=== PATIENT | male | born 1965 | race African-American/Black ===

== ENCOUNTER 2020-05-10 19:56 | Inpatient (IN) | payer OTHER ==
[~2020-05-10] VITALS: Ht 170.2 cm; Wt 142.4 kg
[2020-05-10 19:56] VITALS: BP 132/74
--- NOTE | 2020-05-10 20:05 | Emergency Room Report ---
History of Present Illness General Chief Complaint: Generalized Weakness Source: Patient Present Illness HPI History of present illness: 54-year-old -British male with past medical history of hypertension and morbid obesity brought in by ambulance for complaint of generalized weakness. Patient states that he has been feeling weak for the past 7 days. Also endorses chills, subjective fever, and diarrhea. States that diarrhea is copious but nonbloody. Since the symptoms started, he also has found it more difficult to breathe. He gets more winded while walking. Denies cough or shortness of breath. According to [place] fire, patient was noted to be 89% on room air. Patient is not home O2 dependent. Past medical history: Hypertension, obesity Past surgical history: Tonsillectomy Smoking: Previous heavy smoker but now quit Alcohol use: Denies Drug use: Denies Review of systems: CONST: No fevers +chills, No night sweats PULMONARY: No productive cough, +shortness of breath CARDIAC: No chest pain, No palpitations GI: No vomiting, + diarrhea , No melena_or_BRBPR : No dysuria, No hematuria, No discharge NEURO: No new_focal_weakness_or_numbness, No confusion, No vision changes 14 point Review of Systems is otherwise negative except per HPI Physical Exam: GENERAL: Awake_alert_ nontoxic, no acute distress Spo2 89% on room air (normal) . Morbidly obese. EYES: Extraocular muscles are intact. Conjunctivae clear. Lids without swelling ENT: External nose and ear normal_in_appearance. Oropharynx clear. Head_ atraumatic, Moist_oral_mucosa NECK: No JVD. No meningismus. No thyromegaly. Supple. Trachea midline RESP: Coarse breath sounds bilaterally. Normal respiratory effort. Symmetric rise. No stridor. Clear_to_auscultation_No_ rales_No_wheezes CARDIAC: Tachycardic. And regular rhythm on_auscultation No_significant pedal edema. ABDOMEN: Soft. Nondistended. Nontender_No_rebound_or_guarding. No pulsatile mass MSK: Normal muscle tone, without rigidity. Extremities without asymmetric deformity or swelling. SKIN: Warm and dry. No visible cyanosis or pallor NEUROLOGIC: Alert, oriented x3. Motor_and_sensation_grossly_intact. No truncal ataxia. Gait_normal Psych: Normal mood and affect, normal judgment and insight - COORDINATION OF CARE Case was discussed with: Patient and patient's family. Any labs and imaging that were ordered were interpreted as part of the medical decision making: Medical Decision Making/Plan: Differential includes CHF, pulmonary edema, pulmonary embolism, pneumonia, COVID , pleural effusions, pneumothorax, among others. EKG without any obvious signs of ischemia. He does have T wave inversions in the lateral and inferior leads. Chest xray shows multifocal pneumonia suspicious for COVID pneumonia. Symptoms are not likely to be due to pulmonary embolism, as his primary complaint is diarrhea. Infectious etiology is more likely. Patient is hypoxic here and is not home O2 dependent. He is not suitable for outpatient management due to this hypoxia. Will admit to the hospital for oxygen Pt was given azithro, rocephin, and decadron. I spoke with Dr. Ryan, and reviewed the patients presentation, workup, results, and treatment. They will admit the patient for further care and evaluation, and assume care of the patient at this time. CRITICAL CARE TIME I spent 50 minutes of critical care time. This time excludes any separately billable procedures. Treatments/Evaluations: Emergent and rapid respiratory assessment and management with continuous monitoring. Advanced airway equipment at the ready, while the patient's respiratory symptoms were stabilized. Given the patients presentation with CHF requiring oxygen, there existed the potential for imminent deterioration in the patient's condition due to respiratory compromise. Organ systems at risk for failure without immediate intervention include pulmonary / respiratory Allergies: Coded Allergies: No Known Allergies (Unverified , 05/10/20) COVID-19 Screening Contact w/high risk pt: No Experienced COVID-19 symptoms?: No COVID-19 Testing performed [employer]ENT: No Nursing Documentation-PMH Hx Hypertension: Yes Hx Diabetes: Yes - pre-diabetic Physical Exam Vital Signs Date Time Temp Pulse Resp B/P (MAP) Pulse Ox O2 Delivery O2 Flow Rate FiO2 05/10/20 19:52 97.5 96 20 132/74 (93) 90 Room Air Sp02 EP Interpretation: reviewed, normal Medical Decision Making Diagnostic Impression: Primary Impression: Episode of generalized weakness Additional Impressions: Hypoxia Obesity Hypertension Suspected COVID-19 virus infection Diarrhea EKG Diagnostic Results TK Scribe Text 12-lead EKG (interpreted by me) Time: 2014 Indication: Analysis Tracing visualized and Interpreted by me. Rhythm: Normal sinus rhythm Rate: 96 bpm QTc: 424 Morphology: No_significant_ST_elevations_or_depressions, No STEMI Impression: NSR, twi inferior and lateral leads, no STEMI Rhythm Strip Diag. Results Rhythm Strip Time: 20:29 EP Interpretation: yes Rate: 113 Rhythm: other - sinus tachycardia Other Impression sinus tachycardia Chest X-Ray Diagnostic Results Chest X-Ray Diagnostic Results : PA Scribe Text Chest X-ray: Views: 1 view(s) Indication: SOB Findings: Normal heart size. Mediastinum normal. No effusions Impression: Multifocal pneumonia. No pneumothorax. No pleural effusions The X-ray(s) were independently viewed and interpreted contemporaneously - Electronically signed by Ashley wills DO Reevaluation Time: 20:27 Last Vital Signs Date Time Temp Pulse Resp B/P (MAP) Pulse Ox O2 Delivery O2 Flow Rate FiO2 05/10/20 19:52 97.5 96 20 132/74 (93) 90 Room Air Status: improved Disposition: ADMITTED INPATIENT Admit Decision Time: 20:27 Condition: Stable Ashley Alfaro D.O. May 10, 2020 20:05
[2020-05-10] MEDS ORDERED: METOPROLOL TART50 M1 ORAL (20:09)
[2020-05-10] MEDS ORDERED: ASPIRIN81 MG ORAL (20:09)
[2020-05-10] MEDS ORDERED: AMLODIPINE BESY10 MG ORAL (20:09)
[2020-05-10] MEDS ORDERED: HYDROCHLOROTH12.5 MG ORAL (20:09)
[2020-05-10] MEDS ORDERED: LOSARTAN POTASS50 MG ORAL (20:09)
[2020-05-10] MEDS ORDERED: ATORVASTATIN CA20 MG ORAL (20:09)
[2020-05-10] MEDS ORDERED: cefTRIAXone 2 GM in NS 110 ML IV ONE (20:15)
[2020-05-10] MEDS ORDERED: Azithromycin 250mg tab ORAL ONE (20:30)
[2020-05-10 20:44] LABS: BASOPHILS % (AUTO) 1.3 % (0.0-2.0); EOSINOPHILS % (AUTO) 0.1 % (0.0-3.0); HEMATOCRIT 45.1 % (42.0-52.0); HEMOGLOBIN 14.9 G/DL (14.2-18.0); LYMPHOCYTES % (AUTO) 14.8 % (20.0-45.0); MEAN CORPUSCULAR VOLUME 80 FL (80-99); MONOCYTES % (AUTO) 10.3 % (1.0-10.0); NEUTROPHILS % (AUTO) 73.6 % (45.0-75.0); PLATELET COUNT 178 K/UL (150-450); RED BLOOD COUNT 5.63 M/UL (4.70-6.10); RED CELL DISTRIBUTION WIDTH 15.3 % (11.6-14.8); WHITE BLOOD COUNT 11.2 K/UL (4.8-10.8)
[2020-05-10 20:52] LABS: INR 1.2 (0.9-1.1)
[2020-05-10 20:55] LABS: ANION GAP 13 mmol/L (5-15); BLOOD UREA NITROGEN 74 mg/dL (7-18); CALCIUM 8.2 MG/DL (8.5-10.1); CARBON DIOXIDE 24 MMOL/L (21-32); CHLORIDE 96 MMOL/L (98-107); CREATININE 2.6 MG/DL (0.55-1.30); POTASSIUM 3.8 MMOL/L (3.5-5.1); SODIUM 133 MMOL/L (136-145)
[2020-05-10 21:00] VITALS: BP 102/59
[2020-05-10 21:13] LABS: ALANINE AMINOTRANSFERASE 294 U/L (12-78); ALBUMIN 2.9 G/DL (3.4-5.0); ALBUMIN/GLOBULIN RATIO 0.7 (1.0-2.7); ALKALINE PHOSPHATASE 93 U/L (46-116); ASPARTATE AMINO TRANSFERASE 299 U/L (15-37); BILIRUBIN,TOTAL 2.3 MG/DL (0.2-1.0); CREATINE KINASE 6240 U/L (26-308); PHOSPHORUS 3.5 MG/DL (2.5-4.9)
[2020-05-10 21:17] LABS: BILIRUBIN,DIRECT 1.1 MG/DL (0.0-0.3)
[2020-05-10 22:00] VITALS: BP 109/71
[2020-05-10 23:00] VITALS: BP 117/56
[2020-05-11] VITALS (9 sets, daily range): BP systolic 110–139; BP diastolic 57–73
[2020-05-11 00:25] LABS: BILIRUBIN, URINE NEGATIVE (NEGATIVE); GLUCOSE, URINE (UA) NEGATIVE (NEGATIVE); KETONES,URINE NEGATIVE (NEGATIVE); LEUKOCYTE ESTERASE ,URINE NEGATIVE (NEGATIVE); NITRITE,URINE NEGATIVE (NEGATIVE); PH,URINE 5 (4.5-8.0); PROTEIN,URINE 2+ (NEGATIVE); UROBILINOGEN,URINE 1 MG/DL (0.0-1.0)
[2020-05-11 00:41] LABS: APPEARANCE,URINE CLEAR; COLOR,URINE YELLOW
[2020-05-11] MEDS: D5 1/2NS w/KCl 20mEq 1,000 ML IV SCH ×3 (03:31→17:12)
--- NOTE | 2020-05-11 06:45 | Consultation ---
DATE OF CONSULTATION: 05/11/2020 PULMONARY CONSULTATION HISTORY OF PRESENT ILLNESS: This is a 54-year-old male with a history of hypertension and obesity who came to the hospital with generalized weakness. The patient reports he has a history of heart condition. He is found to be hypoxic on room air, who was admitted to the hospital for further management and care. The patient admits to having significant tobacco use history, but has quit recently. Overnight, the patient has been seen and continued on his home medications. He is currently noted to be on Tylenol, Norvasc, aspirin, Lipitor. He has also received Decadron, Lovenox, Pepcid, and a dose of azithromycin. The patient underwent a COVID-19 rapid test which was positive for COVID-19 pneumonia. REVIEW OF SYSTEMS: The patient denies any headaches, hematemesis, melena, hematochezia, night sweats, or weight loss. Admits to having chills. PHYSICAL EXAMINATION: GENERAL: Reveals a 54-year-old male. VITAL SIGNS: O2 saturation 99% on room air, overnight he was on nasal oxygen and saturations is 95%. Blood pressure is 110/60, heart rate 80, respirations 18, afebrile. HEENT: Unremarkable. CHEST: Clear breath sounds bilaterally. ABDOMEN: Soft. EXTREMITIES: There is no edema. LABORATORY DATA: Lab testing shows white count 11.2, otherwise normal CBC and BMP except for creatinine of 2.6, sodium 133. He has elevation of LFTs as well ALT and AST both being elevated and total bilirubin 2.3. Urinalysis negative. IMAGING STUDIES: X-ray chest showed bilateral focal infiltrate. IMPRESSION: 1. Acute COVID-19 pneumonia. 2. Hypoxemia. 3. Transaminitis and hyperbilirubinemia. 4. Ex-smoker. DISCUSSION: Admit to the hospital. The patient may be a candidate for Remdesivir; however, high creatinine may preclude him. Continue oxygen, steroids, pulmonary hygiene. Defer use of antibiotics to ID. We will follow carefully with commodity specialist. Jaswinder Frederick M.D. DR: Erick JOB#: [id number] CC:
[2020-05-11] MEDS: Aspirin Baby 81mg ORAL SCH (09:27)
[2020-05-11] MEDS: Enoxaparin 40mg Inj SUBQ SCH (09:29)
--- NOTE | 2020-05-11 13:48 | History & Physical ---
History and Physical History & Physicial HP dictated # [id number] Mitchell Blackwell MD May 11, 2020 13:48
--- NOTE | 2020-05-11 16:13 | Diagnostic Imaging Report ---
Indication: Cough Technique: One view of the chest Comparison: none Findings: Fairly extensive infiltrates in a peribronchovascular distribution are seen in the right mid and lower lung. Minimal if any infiltrate is seen on the left. The upper mediastinum is prominent. The heart size is normal. Patient is rotated to the right Impression: Right lung infiltrates, likely pneumonia, possibly viral
--- NOTE | 2020-05-11 16:45 | History and Physical Report ---
DATE OF ADMISSION: 05/10/2020 CHIEF COMPLAINT: Weakness. HISTORY OF PRESENT ILLNESS: This is a 54-year-old male with history of morbid obesity, hypertension, who came to the emergency room with weakness, was found to be hypoxic on room air. He was COVID positive, was diagnosed with COVID pneumonia and admitted. PAST MEDICAL HISTORY: As above. SOCIAL HISTORY: As above. REVIEW OF SYSTEMS: As above. PHYSICAL EXAMINATION: GENERAL: The patient is a morbidly obese male, in no acute distress. VITAL SIGNS: Blood pressure 132/74, pulse 96, temperature 97.5, respiratory rate is 20. HEENT: [place] conjunctivae. Anicteric sclerae. NECK: Supple. LUNGS: Clear to auscultation. HEART: S1, S2 without murmurs or rubs. ABDOMEN: Soft, nontender. EXTREMITIES: No cyanosis or edema. LABORATORY FINDINGS: His CBC shows a WBC of 11,200, hematocrit is 45.1, hemoglobin is 14.9, and platelets 178,000. Chemistry panel shows serum sodium of 133, potassium 3.8, chloride 96, carbon dioxide 24, BUN is 74, creatinine 2.6, blood sugar is 151, calcium is 8.2. The UA was showing 4+ protein, 5 to 10 rbc's per high-power field. ASSESSMENT: This is a 54-year-old obese male, who was admitted with COVID pneumonia. PLAN: He was already started on azithromycin, Lovenox, IV steroids, dexamethasone, and oxygen. He will be followed clinically and adjustment will be made in the patient's regimen. Mitchell Blcakwell M.D. : JACK JOB#: [id number] CC:
[2020-05-11] MEDS: Azithromycin 250mg tab ORAL SCH (20:57)
[2020-05-11] MEDS: Atorvastatin 20mg tab ORAL SCH (20:57)
[2020-05-11] MEDS: cefTRIAXone 1 GM in D5W 55 ML IVPB SCH (20:59)
[2020-05-12] VITALS: BP 134/76
[2020-05-12 04:50] VITALS: BP 130/70
[2020-05-12 05:49] LABS: BASOPHILS % (AUTO) 1.7 % (0.0-2.0); HEMATOCRIT 42.4 % (42.0-52.0); HEMOGLOBIN 13.9 G/DL (14.2-18.0); MEAN CORPUSCULAR VOLUME 81 FL (80-99); MONOCYTES % (AUTO) 9.4 % (1.0-10.0); NEUTROPHILS % (AUTO) 72.9 % (45.0-75.0); PLATELET COUNT 230 K/UL (150-450); RED BLOOD COUNT 5.23 M/UL (4.70-6.10); RED CELL DISTRIBUTION WIDTH 14.4 % (11.6-14.8); WHITE BLOOD COUNT 16.6 K/UL (4.8-10.8)
[2020-05-12] MEDS: D5 1/2NS w/KCl 20mEq 1,000 ML IV SCH ×2 (06:01→17:59)
[2020-05-12 06:14] LABS: ANION GAP 8 mmol/L (5-15); BLOOD UREA NITROGEN 35 mg/dL (7-18); CALCIUM 8.9 MG/DL (8.5-10.1); CARBON DIOXIDE 26 MMOL/L (21-32); CHLORIDE 99 MMOL/L (98-107); CHOLESTEROL 90 MG/DL (< 200); CREATININE 1.4 MG/DL (0.55-1.30); HDL CHOLESTEROL 10 MG/DL (40-60); POTASSIUM 3.9 MMOL/L (3.5-5.1); SODIUM 133 MMOL/L (136-145); TRIGLYCERIDES 136 MG/DL (30-150)
[2020-05-12 08:00] VITALS: BP 141/80
[2020-05-12] MEDS: Aspirin Baby 81mg ORAL SCH (09:29)
[2020-05-12] MEDS: Enoxaparin 40mg Inj SUBQ SCH (09:32)
[2020-05-12 12:00] VITALS: BP 127/49
--- NOTE | 2020-05-12 13:47 | Pulmonology Progress Note ---
Subjective ROS Limited/Unobtainable: No Allergies: Coded Allergies: No Known Allergies (Unverified , 05/10/20) Objective Last 24 Hour Vital Signs Date Time Temp Pulse Resp B/P (MAP) Pulse Ox O2 Delivery O2 Flow Rate FiO2 05/12/20 12:00 97.7 91 22 127/49 (75) 94 05/12/20 11:28 96 05/12/20 09:29 82 141/80 05/12/20 09:00 Nasal Cannula 2.0 05/12/20 08:04 93 05/12/20 08:00 98.1 82 20 141/80 (100) 97 05/12/20 04:50 98.2 79 22 130/70 (90) 95 05/12/20 04:00 86 05/12/20 00:00 85 05/12/20 00:00 98.1 81 22 134/76 (95) 98 05/11/20 22:00 134 05/11/20 21:00 97.7 84 20 139/73 (95) 95 05/11/20 21:00 Nasal Cannula 2.0 05/11/20 20:00 97.7 84 20 139/73 (95) 95 05/11/20 20:00 88 05/11/20 16:00 98.6 85 20 115/69 (84) 94 05/11/20 15:58 79 Intake and Output 05/11/20 05/12/20 19:00 07:00 Intake Total 1625 ml 400 ml Output Total 2300 ml 1600 ml Balance -675 ml -1200 ml Intake Oral 800 ml 400 ml IV Total 825 ml Output Urine Total 2300 ml 1600 ml # Voids 4 3 Microbiology Date/Time Source Procedure Growth Status 05/10/20 20:15 Blood Blood Culture - Preliminary NO GROWTH AFTER 24 HOURS Resulted 05/10/20 20:10 Blood Blood Culture - Preliminary NO GROWTH AFTER 24 HOURS Resulted 05/10/20 20:26 Nasopharynx SARS-CoV-2 RdRp Gene Assay - Final Complete Laboratory Tests 05/12/20 04:00: White Blood Count 16.6H, Red Blood Count 5.23, Hemoglobin 13.9L, Hematocrit 42.4 , Mean Corpuscular Volume 81, Mean Corpuscular Hemoglobin 26.6L, Mean Corpuscular Hemoglobin Concent 32.8, Red Cell Distribution Width 14.4, Platelet Count 230, Mean Platelet Volume 9.1, Neutrophils (%) (Auto) 72.9, Lymphocytes (% ) (Auto) 16.0L, Monocytes (%) (Auto) 9.4, Eosinophils (%) (Auto) 0.0, Basophils (%) (Auto) 1.7, Sodium Level 133L, Potassium Level 3.9, Chloride Level 99, Carbon Dioxide Level 26, Anion Gap 8, Blood Urea Nitrogen 35H, Creatinine 1.4H, Estimat Glomerular Filtration Rate > 60, Glucose Level 233H, Hemoglobin A1c 6.6H , Calcium Level 8.9, Magnesium Level 2.2, Triglycerides Level 136, Cholesterol Level 90, LDL Cholesterol 48, HDL Cholesterol 10L, Cholesterol/HDL Ratio 9.0H Current Medications Medications (Trade) Dose Ordered Sig/Sulema Route PRN Reason Start Time Stop Time Status Last Admin Dose Admin Acetaminophen (Tylenol) 650 mg Q4H PRN ORAL Mild Pain (Pain Scale 1-3) 05/11/20 01:00 06/10/20 00:59 Acetaminophen (Tylenol) 650 mg Q4H PRN ORAL Temp >100.5 05/11/20 01:00 06/10/20 00:59 Amlodipine Besylate (Norvasc) 10 mg DAILY ORAL 05/11/20 09:00 06/10/20 08:59 05/12/20 09:29 Aspirin (ASA) 81 mg DAILY ORAL 05/11/20 09:00 06/25/20 08:59 05/12/20 09:29 Atorvastatin Calcium (Lipitor) 20 mg BEDTIME ORAL 05/11/20 21:00 08/09/20 20:59 05/11/20 20:57 Azithromycin (Zithromax) 250 mg Q24H ORAL 05/11/20 21:00 05/18/20 20:59 05/11/20 20:57 Ceftriaxone Sodium 1 gm/ Dextrose 55 ml @ 110 mls/hr Q24H IVPB 05/11/20 21:00 05/18/20 20:59 05/11/20 20:59 Dexamethasone Sodium Phosphate (Decadron 4mg/ml vial) 4 mg BID IVP 05/11/20 09:00 08/09/20 08:59 05/12/20 09:29 Dextrose (Dextrose 50%) 25 ml Q30M PRN IV Hypoglycemia 05/11/20 01:00 08/09/20 00:59 Dextrose (Dextrose 50%) 50 ml Q30M PRN IV Hypoglycemia 05/11/20 01:00 08/09/20 00:59 Dextrose/ Electrolytes 1,000 ml @ 75 mls/hr [id number] IV 05/11/20 02:00 06/10/20 01:59 05/12/20 06:01 Enoxaparin Sodium (Lovenox) 40 mg Q24H SUBQ 05/11/20 09:00 08/09/20 08:59 05/12/20 09:32 Famotidine (Pepcid) 20 mg BID ORAL 05/11/20 09:00 08/09/20 08:59 05/12/20 09:29 Assessment/Plan Assessment/Plan Pulmonary Progress Note: HPI: Patient is a 54-year-old male with a history of hypertension and obesity, HHD Noted to be hypoxic on room air, noted to have Covid19 Pneumonia, stable O2 sats on O2 On Decadron, Lovenox, Pepcid, and a dose of azithromycin. PHYSICAL EXAMINATION: Vital signs noted Deferred Covid 19 LABORATORY DATA NOTED: IMAGING STUDIES: X-ray chest showed bilateral focal infiltrate. IMPRESSION: 1. Acute COVID-19 pneumonia. 2. Hypoxemia. 3. Transaminitis and hyperbilirubinemia. 4. Ex-smoker. 5. Obesity 6. Hypertension PLAN: Antiviral therapy per ID Oxygen PRN Decadron per ID, pulmonary hygiene. Solomon Erwin MD May 12, 2020 13:47
[2020-05-12 16:00] VITALS: BP 115/69
[2020-05-12 20:00] VITALS: BP 111/65
[2020-05-12] MEDS: Atorvastatin 20mg tab ORAL SCH (20:19)
--- NOTE | 2020-05-12 20:19 | General Progress Note ---
Assessment/Plan Problem List: (1) Pneumonia due to COVID-19 virus ICD Codes: U07.1 - COVID-19; J12.89 - Other viral pneumonia SNOMED: 122261129, 044821239 (2) Hypertension ICD Codes: I10 - Essential (primary) hypertension SNOMED: 38810001 (3) Obesity ICD Codes: E66.9 - Obesity, unspecified SNOMED: 161240771, 803945708 (4) Hypoxia ICD Codes: R09.02 - Hypoxemia SNOMED: 622825374 (5) Diarrhea ICD Codes: R19.7 - Diarrhea, unspecified SNOMED: 82652280 (6) Episode of generalized weakness ICD Codes: R53.1 - Weakness SNOMED: 46168049 Assessment/Plan: O2 as needed steroids anticoagulation abxs Discussed with RN Subjective Allergies: Coded Allergies: No Known Allergies (Unverified , 05/10/20) Subjective gets tachycardic with activities Objective Last 24 Hour Vital Signs Date Time Temp Pulse Resp B/P (MAP) Pulse Ox O2 Delivery O2 Flow Rate FiO2 05/12/20 16:00 98.2 85 21 115/69 (84) 94 05/12/20 15:45 128 05/12/20 12:00 97.7 91 22 127/49 (75) 94 05/12/20 11:28 96 05/12/20 09:29 82 141/80 05/12/20 09:00 Nasal Cannula 2.0 05/12/20 08:04 93 05/12/20 08:00 98.1 82 20 141/80 (100) 97 05/12/20 04:50 98.2 79 22 130/70 (90) 95 05/12/20 04:00 86 05/12/20 00:00 85 05/12/20 00:00 98.1 81 22 134/76 (95) 98 05/11/20 22:00 134 05/11/20 21:00 97.7 84 20 139/73 (95) 95 05/11/20 21:00 Nasal Cannula 2.0 Intake and Output 05/11/20 05/12/20 19:00 07:00 Intake Total 1625 ml 400 ml Output Total 2300 ml 1600 ml Balance -675 ml -1200 ml Intake Oral 800 ml 400 ml IV Total 825 ml Output Urine Total 2300 ml 1600 ml # Voids 4 3 Laboratory Tests 05/12/20 04:00: White Blood Count 16.6H, Red Blood Count 5.23, Hemoglobin 13.9L, Hematocrit 42.4 , Mean Corpuscular Volume 81, Mean Corpuscular Hemoglobin 26.6L, Mean Corpuscular Hemoglobin Concent 32.8, Red Cell Distribution Width 14.4, Platelet Count 230, Mean Platelet Volume 9.1, Neutrophils (%) (Auto) 72.9, Lymphocytes (% ) (Auto) 16.0L, Monocytes (%) (Auto) 9.4, Eosinophils (%) (Auto) 0.0, Basophils (%) (Auto) 1.7, Sodium Level 133L, Potassium Level 3.9, Chloride Level 99, Carbon Dioxide Level 26, Anion Gap 8, Blood Urea Nitrogen 35H, Creatinine 1.4H, Estimat Glomerular Filtration Rate > 60, Glucose Level 233H, Hemoglobin A1c 6.6H , Calcium Level 8.9, Magnesium Level 2.2, Triglycerides Level 136, Cholesterol Level 90, LDL Cholesterol 48, HDL Cholesterol 10L, Cholesterol/HDL Ratio 9.0H Height (Feet): 5 Height (Inches): 7.00 Weight (Pounds): 314 Mitchell Blackwell MD May 12, 2020 20:19
[2020-05-12] MEDS: Azithromycin 250mg tab ORAL SCH (20:20)
[2020-05-12] MEDS: cefTRIAXone 1 GM in D5W 55 ML IVPB SCH (20:21)
[2020-05-13] VITALS: BP 117/52
[2020-05-13 04:00] VITALS: BP 108/58
[2020-05-13 08:00] VITALS: BP 139/70
[2020-05-13] MEDS ORDERED: Tubing IV Secondary IV ONE (08:34)
[2020-05-13 08:41] LABS: BASOPHILS % (AUTO) 1.1 % (0.0-2.0); HEMATOCRIT 39.2 % (42.0-52.0); HEMOGLOBIN 12.8 G/DL (14.2-18.0); LYMPHOCYTES % (AUTO) 20.1 % (20.0-45.0); MEAN CORPUSCULAR VOLUME 81 FL (80-99); MONOCYTES % (AUTO) 12.2 % (1.0-10.0); NEUTROPHILS % (AUTO) 66.5 % (45.0-75.0); PLATELET COUNT 230 K/UL (150-450); RED BLOOD COUNT 4.81 M/UL (4.70-6.10); RED CELL DISTRIBUTION WIDTH 14.6 % (11.6-14.8); WHITE BLOOD COUNT 12.3 K/UL (4.8-10.8)
[2020-05-13 09:06] LABS: ALANINE AMINOTRANSFERASE 204 U/L (12-78); ALBUMIN 2.4 G/DL (3.4-5.0); ALBUMIN/GLOBULIN RATIO 0.5 (1.0-2.7); ALKALINE PHOSPHATASE 65 U/L (46-116); ANION GAP 10 mmol/L (5-15); ASPARTATE AMINO TRANSFERASE 127 U/L (15-37); BILIRUBIN,TOTAL 0.8 MG/DL (0.2-1.0); BLOOD UREA NITROGEN 16 mg/dL (7-18); CALCIUM 8.1 MG/DL (8.5-10.1); CARBON DIOXIDE 27 MMOL/L (21-32); CHLORIDE 99 MMOL/L (98-107); CREATININE 1.1 MG/DL (0.55-1.30); POTASSIUM 3.7 MMOL/L (3.5-5.1); SODIUM 136 MMOL/L (136-145)
[2020-05-13] MEDS: Aspirin Baby 81mg ORAL SCH (09:54)
[2020-05-13] MEDS: Enoxaparin 40mg Inj SUBQ SCH (09:55)
[2020-05-13] MEDS: D5 1/2NS w/KCl 20mEq 1,000 ML IV SCH ×2 (09:56→19:25)
[2020-05-13 12:00] VITALS: BP 129/61
--- NOTE | 2020-05-13 12:05 | Infectious Diseases Prog Note ---
Assessment/Plan Assessment/Plan IMPRESSION: 1. COVID19 pneumonia. 2. Hypoxemia improving 3. Transaminitis and hyperbilirubinemia. 4. Ex-smoker. 5. Obesity 6. Hypertension 7. Acute renal failure resolving PLAN Continue Zithromax & Rocephin Continue Dexamethasone Subjective ROS Limited/Unobtainable: Yes Allergies: Coded Allergies: No Known Allergies (Unverified , 05/10/20) Objective Last 24 Hour Vital Signs Date Time Temp Pulse Resp B/P (MAP) Pulse Ox O2 Delivery O2 Flow Rate FiO2 05/13/20 09:54 81 139/70 05/13/20 08:00 96.7 81 18 139/70 (93) 96 05/13/20 04:00 98.9 92 20 108/58 (75) 97 05/13/20 04:00 128 05/13/20 00:00 97.0 79 20 117/52 (73) 95 05/12/20 23:49 87 05/12/20 21:00 Nasal Cannula 2.0 05/12/20 20:00 98.0 90 20 111/65 (80) 93 05/12/20 19:28 86 05/12/20 16:00 98.2 85 21 115/69 (84) 94 05/12/20 15:45 128 Height (Feet): 5 Height (Inches): 7.00 Weight (Pounds): 314 HEENT: mucous membranes moist Respiratory/Chest: lungs clear Cardiovascular: normal rate Abdomen: soft, non tender Extremities: no edema Neurologic/Psychiatric: other - sleeping Microbiology Date/Time Source Procedure Growth Status 05/10/20 20:15 Blood Blood Culture - Preliminary NO GROWTH AFTER 48 HOURS Resulted 05/10/20 20:10 Blood Blood Culture - Preliminary NO GROWTH AFTER 48 HOURS Resulted 05/10/20 20:26 Nasopharynx SARS-CoV-2 RdRp Gene Assay - Final Complete Laboratory Tests Test 05/13/20 06:15 White Blood Count 12.3 K/UL (4.8-10.8) H Red Blood Count 4.81 M/UL (4.70-6.10) Hemoglobin 12.8 G/DL (14.2-18.0) L Hematocrit 39.2 % (42.0-52.0) L Mean Corpuscular Volume 81 FL (80-99) Mean Corpuscular Hemoglobin 26.5 PG (27.0-31.0) L Mean Corpuscular Hemoglobin Concent 32.6 G/DL (32.0-36.0) Red Cell Distribution Width 14.6 % (11.6-14.8) Platelet Count 230 K/UL (150-450) Mean Platelet Volume 8.7 FL (6.5-10.1) Neutrophils (%) (Auto) 66.5 % (45.0-75.0) Lymphocytes (%) (Auto) 20.1 % (20.0-45.0) Monocytes (%) (Auto) 12.2 % (1.0-10.0) H Eosinophils (%) (Auto) 0.0 % (0.0-3.0) Basophils (%) (Auto) 1.1 % (0.0-2.0) Sodium Level 136 MMOL/L (136-145) Potassium Level 3.7 MMOL/L (3.5-5.1) Chloride Level 99 MMOL/L (98-107) Carbon Dioxide Level 27 MMOL/L (21-32) Anion Gap 10 mmol/L (5-15) Blood Urea Nitrogen 16 mg/dL (7-18) Creatinine 1.1 MG/DL (0.55-1.30) Estimat Glomerular Filtration Rate > 60 mL/min (>60) Glucose Level 188 MG/DL (74-106) H Calcium Level 8.1 MG/DL (8.5-10.1) L Total Bilirubin 0.8 MG/DL (0.2-1.0) Aspartate Amino Transf (AST/SGOT) 127 U/L (15-37) H Alanine Aminotransferase (ALT/SGPT) 204 U/L (12-78) H Alkaline Phosphatase 65 U/L (46-116) Total Protein 6.9 G/DL (6.4-8.2) Albumin 2.4 G/DL (3.4-5.0) L Globulin 4.5 g/dL Albumin/Globulin Ratio 0.5 (1.0-2.7) L Current Medications Medications (Trade) Dose Ordered Sig/Sulema Route PRN Reason Start Time Stop Time Status Last Admin Dose Admin Acetaminophen (Tylenol) 650 mg Q4H PRN ORAL Mild Pain (Pain Scale 1-3) 05/11/20 01:00 06/10/20 00:59 Acetaminophen (Tylenol) 650 mg Q4H PRN ORAL Temp >100.5 05/11/20 01:00 06/10/20 00:59 Amlodipine Besylate (Norvasc) 10 mg DAILY ORAL 05/11/20 09:00 06/10/20 08:59 05/13/20 09:54 Aspirin (ASA) 81 mg DAILY ORAL 05/11/20 09:00 06/25/20 08:59 05/13/20 09:54 Atorvastatin Calcium (Lipitor) 20 mg BEDTIME ORAL 05/11/20 21:00 08/09/20 20:59 05/12/20 20:19 Azithromycin (Zithromax) 250 mg Q24H ORAL 05/11/20 21:00 05/18/20 20:59 05/12/20 20:20 Ceftriaxone Sodium 1 gm/ Dextrose 55 ml @ 110 mls/hr Q24H IVPB 05/11/20 21:00 05/18/20 20:59 05/12/20 20:21 Dexamethasone Sodium Phosphate (Decadron 4mg/ml vial) 4 mg BID IVP 05/11/20 09:00 08/09/20 08:59 05/13/20 09:54 Dextrose (Dextrose 50%) 25 ml Q30M PRN IV Hypoglycemia 05/11/20 01:00 08/09/20 00:59 Dextrose (Dextrose 50%) 50 ml Q30M PRN IV Hypoglycemia 05/11/20 01:00 08/09/20 00:59 Dextrose/ Electrolytes 1,000 ml @ 75 mls/hr [id number] IV 05/11/20 02:00 06/10/20 01:59 05/13/20 09:56 Enoxaparin Sodium (Lovenox) 40 mg Q24H SUBQ 05/11/20 09:00 08/09/20 08:59 05/13/20 09:55 Famotidine (Pepcid) 20 mg BID ORAL 05/11/20 09:00 08/09/20 08:59 05/13/20 09:54 Grabiel Blackwell MD May 13, 2020 12:05
--- NOTE | 2020-05-13 12:39 | Pulmonology Progress Note ---
Subjective ROS Limited/Unobtainable: Yes Allergies: Coded Allergies: No Known Allergies (Unverified , 05/10/20) Objective Last 24 Hour Vital Signs Date Time Temp Pulse Resp B/P (MAP) Pulse Ox O2 Delivery O2 Flow Rate FiO2 05/13/20 09:54 81 139/70 05/13/20 08:00 96.7 81 18 139/70 (93) 96 05/13/20 04:00 98.9 92 20 108/58 (75) 97 05/13/20 04:00 128 05/13/20 00:00 97.0 79 20 117/52 (73) 95 05/12/20 23:49 87 05/12/20 21:00 Nasal Cannula 2.0 05/12/20 20:00 98.0 90 20 111/65 (80) 93 05/12/20 19:28 86 05/12/20 16:00 98.2 85 21 115/69 (84) 94 05/12/20 15:45 128 Intake and Output 05/12/20 05/13/20 19:00 07:00 Intake Total 75 ml 842.50 ml Balance 75 ml 842.50 ml IV Total 75 ml 842.50 ml # Bowel Movements 1 Microbiology Date/Time Source Procedure Growth Status 05/10/20 20:15 Blood Blood Culture - Preliminary NO GROWTH AFTER 48 HOURS Resulted 05/10/20 20:10 Blood Blood Culture - Preliminary NO GROWTH AFTER 48 HOURS Resulted 05/10/20 20:26 Nasopharynx SARS-CoV-2 RdRp Gene Assay - Final Complete Laboratory Tests 05/13/20 06:15: White Blood Count 12.3H, Red Blood Count 4.81, Hemoglobin 12.8L, Hematocrit 39.2L, Mean Corpuscular Volume 81, Mean Corpuscular Hemoglobin 26.5L, Mean Corpuscular Hemoglobin Concent 32.6, Red Cell Distribution Width 14.6, Platelet Count 230, Mean Platelet Volume 8.7, Neutrophils (%) (Auto) 66.5, Lymphocytes (% ) (Auto) 20.1, Monocytes (%) (Auto) 12.2H, Eosinophils (%) (Auto) 0.0, Basophils (%) (Auto) 1.1, Sodium Level 136, Potassium Level 3.7, Chloride Level 99, Carbon Dioxide Level 27, Anion Gap 10, Blood Urea Nitrogen 16, Creatinine 1.1, Estimat Glomerular Filtration Rate > 60, Glucose Level 188H, Calcium Level 8.1L, Total Bilirubin 0.8, Aspartate Amino Transf (AST/SGOT) 127H, Alanine Aminotransferase (ALT/SGPT) 204H, Alkaline Phosphatase 65, Total Protein 6.9, Albumin 2.4L, Globulin 4.5, Albumin/Globulin Ratio 0.5L Current Medications Medications (Trade) Dose Ordered Sig/Sulema Route PRN Reason Start Time Stop Time Status Last Admin Dose Admin Acetaminophen (Tylenol) 650 mg Q4H PRN ORAL Mild Pain (Pain Scale 1-3) 05/11/20 01:00 06/10/20 00:59 Acetaminophen (Tylenol) 650 mg Q4H PRN ORAL Temp >100.5 05/11/20 01:00 06/10/20 00:59 Amlodipine Besylate (Norvasc) 10 mg DAILY ORAL 05/11/20 09:00 06/10/20 08:59 05/13/20 09:54 Aspirin (ASA) 81 mg DAILY ORAL 05/11/20 09:00 06/25/20 08:59 05/13/20 09:54 Atorvastatin Calcium (Lipitor) 20 mg BEDTIME ORAL 05/11/20 21:00 08/09/20 20:59 05/12/20 20:19 Azithromycin (Zithromax) 250 mg Q24H ORAL 05/11/20 21:00 05/18/20 20:59 05/12/20 20:20 Ceftriaxone Sodium 1 gm/ Dextrose 55 ml @ 110 mls/hr Q24H IVPB 05/11/20 21:00 05/18/20 20:59 05/12/20 20:21 Dexamethasone Sodium Phosphate (Decadron 4mg/ml vial) 4 mg BID IVP 05/11/20 09:00 08/09/20 08:59 05/13/20 09:54 Dextrose (Dextrose 50%) 25 ml Q30M PRN IV Hypoglycemia 05/11/20 01:00 08/09/20 00:59 Dextrose (Dextrose 50%) 50 ml Q30M PRN IV Hypoglycemia 05/11/20 01:00 08/09/20 00:59 Dextrose/ Electrolytes 1,000 ml @ 75 mls/hr [id number] IV 05/11/20 02:00 06/10/20 01:59 05/13/20 09:56 Enoxaparin Sodium (Lovenox) 40 mg Q24H SUBQ 05/11/20 09:00 08/09/20 08:59 05/13/20 09:55 Famotidine (Pepcid) 20 mg BID ORAL 05/11/20 09:00 08/09/20 08:59 05/13/20 09:54 Assessment/Plan Assessment/Plan Pulmonary Progress Note: HPI: Patient is a 54-year-old male with a history of hypertension and obesity, HHD Noted to be hypoxic on room air, noted to have Covid19 Pneumonia, stable O2 sats on O2 On Decadron, Lovenox, Pepcid, and a dose of azithromycin. PHYSICAL EXAMINATION: Vital signs noted Deferred Covid 19 LABORATORY DATA NOTED: IMAGING STUDIES: X-ray chest showed bilateral focal infiltrate. IMPRESSION: 1. Acute COVID-19 pneumonia. 2. Hypoxemia. 3. Transaminitis and hyperbilirubinemia. 4. Ex-smoker. 5. Obesity 6. Hypertension PLAN: Antiviral therapy per ID Oxygen PRN Decadron per ID, pulmonary hygiene. Solomon Erwin MD May 13, 2020 12:39
--- NOTE | 2020-05-13 15:50 | General Progress Note ---
Assessment/Plan Problem List: (1) Pneumonia due to COVID-19 virus ICD Codes: U07.1 - COVID-19; J12.89 - Other viral pneumonia SNOMED: 546197179, 840825619 (2) Hypertension ICD Codes: I10 - Essential (primary) hypertension SNOMED: 06072937 (3) Obesity ICD Codes: E66.9 - Obesity, unspecified SNOMED: 836436877, 225748427 (4) Hypoxia ICD Codes: R09.02 - Hypoxemia SNOMED: 108655162 (5) Diarrhea ICD Codes: R19.7 - Diarrhea, unspecified SNOMED: 37413513 (6) Episode of generalized weakness ICD Codes: R53.1 - Weakness SNOMED: 13705528 Assessment/Plan: O2 as needed steroids anticoagulation abxs Discussed with RN Subjective Allergies: Coded Allergies: No Known Allergies (Unverified , 05/10/20) Subjective all noted Objective Last 24 Hour Vital Signs Date Time Temp Pulse Resp B/P (MAP) Pulse Ox O2 Delivery O2 Flow Rate FiO2 05/13/20 09:54 81 139/70 05/13/20 08:00 96.7 81 18 139/70 (93) 96 05/13/20 04:00 98.9 92 20 108/58 (75) 97 05/13/20 04:00 128 05/13/20 00:00 97.0 79 20 117/52 (73) 95 05/12/20 23:49 87 05/12/20 21:00 Nasal Cannula 2.0 05/12/20 20:00 98.0 90 20 111/65 (80) 93 05/12/20 19:28 86 05/12/20 16:00 98.2 85 21 115/69 (84) 94 Intake and Output 05/12/20 05/13/20 19:00 07:00 Intake Total 75 ml 842.50 ml Balance 75 ml 842.50 ml IV Total 75 ml 842.50 ml # Bowel Movements 1 Laboratory Tests 05/13/20 06:15: White Blood Count 12.3H, Red Blood Count 4.81, Hemoglobin 12.8L, Hematocrit 39.2L, Mean Corpuscular Volume 81, Mean Corpuscular Hemoglobin 26.5L, Mean Corpuscular Hemoglobin Concent 32.6, Red Cell Distribution Width 14.6, Platelet Count 230, Mean Platelet Volume 8.7, Neutrophils (%) (Auto) 66.5, Lymphocytes (% ) (Auto) 20.1, Monocytes (%) (Auto) 12.2H, Eosinophils (%) (Auto) 0.0, Basophils (%) (Auto) 1.1, Sodium Level 136, Potassium Level 3.7, Chloride Level 99, Carbon Dioxide Level 27, Anion Gap 10, Blood Urea Nitrogen 16, Creatinine 1.1, Estimat Glomerular Filtration Rate > 60, Glucose Level 188H, Calcium Level 8.1L, Total Bilirubin 0.8, Aspartate Amino Transf (AST/SGOT) 127H, Alanine Aminotransferase (ALT/SGPT) 204H, Alkaline Phosphatase 65, Total Protein 6.9, Albumin 2.4L, Globulin 4.5, Albumin/Globulin Ratio 0.5L Height (Feet): 5 Height (Inches): 7.00 Weight (Pounds): 314 Mitchell Blackwell MD May 13, 2020 15:50
[2020-05-13 16:00] VITALS: BP 135/70
[2020-05-13 20:00] VITALS: BP 138/74
[2020-05-13] MEDS: Azithromycin 250mg tab ORAL SCH (20:26)
[2020-05-13] MEDS: Atorvastatin 20mg tab ORAL SCH (20:26)
[2020-05-13] MEDS: cefTRIAXone 1 GM in D5W 55 ML IVPB SCH (20:26)
[2020-05-14] VITALS: BP 139/78
[2020-05-14 04:00] VITALS: BP 139/78
[2020-05-14 08:00] VITALS: BP 125/62
[2020-05-14] MEDS: Aspirin Baby 81mg ORAL SCH (08:33)
[2020-05-14] MEDS: Enoxaparin 40mg Inj SUBQ SCH (08:35)
[2020-05-14] MEDS: D5 1/2NS w/KCl 20mEq 1,000 ML IV SCH ×2 (08:36→22:10)
--- NOTE | 2020-05-14 08:39 | Pulmonology Progress Note ---
Subjective ROS Limited/Unobtainable: Yes Interval Events: None new Constitutional: Reports: no symptoms HEENT: Repors: no symptoms Respiratory: Reports: no symptoms Cardiovascular: Reports: no symptoms Gastrointestinal/Abdominal: Reports: no symptoms Allergies: Coded Allergies: No Known Allergies (Unverified , 05/10/20) Objective Last 24 Hour Vital Signs Date Time Temp Pulse Resp B/P (MAP) Pulse Ox O2 Delivery O2 Flow Rate FiO2 05/14/20 08:34 81 125/62 05/14/20 08:00 99.0 81 20 125/62 (83) 98 05/14/20 05:09 98.7 05/14/20 04:00 97.8 74 20 139/78 (98) 99 05/14/20 00:00 98.7 79 22 139/78 (98) 98 05/13/20 21:05 Nasal Cannula 2.0 05/13/20 20:00 98.3 74 20 138/74 (95) 99 05/13/20 16:00 97.8 82 18 135/70 (91) 97 05/13/20 15:29 85 05/13/20 12:00 98.2 76 18 129/61 (83) 96 05/13/20 11:32 73 05/13/20 09:54 81 139/70 05/13/20 09:00 Nasal Cannula 2.0 Intake and Output 05/13/20 05/14/20 19:00 07:00 Intake Total 140 ml Output Total 140 ml Balance 0 ml Intake Oral 140 ml Output Urine Total 140 ml # Voids 3 General Appearance: no acute distress HEENT: normocephalic Respiratory: chest wall non-tender, lungs clear Cardiovascular: normal peripheral pulses, normal rate Current Medications Medications (Trade) Dose Ordered Sig/Sulema Route PRN Reason Start Time Stop Time Status Last Admin Dose Admin Acetaminophen (Tylenol) 650 mg Q4H PRN ORAL Mild Pain (Pain Scale 1-3) 05/13/20 19:00 06/10/20 18:59 05/14/20 04:37 Acetaminophen (Tylenol) 650 mg Q4H PRN ORAL Temp >100.5 05/13/20 19:00 06/10/20 18:59 Amlodipine Besylate (Norvasc) 10 mg DAILY ORAL 05/14/20 09:00 06/10/20 08:59 05/14/20 08:34 Aspirin (ASA) 81 mg DAILY ORAL 05/14/20 09:00 06/25/20 08:59 05/14/20 08:33 Atorvastatin Calcium (Lipitor) 20 mg BEDTIME ORAL 05/13/20 21:00 08/09/20 20:59 05/13/20 20:26 Azithromycin (Zithromax) 250 mg Q24H ORAL 05/13/20 21:00 05/18/20 20:59 05/13/20 20:26 Ceftriaxone Sodium 1 gm/ Dextrose 55 ml @ 110 mls/hr Q24H IVPB 05/13/20 21:00 05/18/20 20:59 05/13/20 20:26 Dexamethasone Sodium Phosphate (Decadron 4mg/ml vial) 4 mg BID IVP 05/14/20 09:00 08/09/20 08:59 05/14/20 08:34 Dextrose (Dextrose 50%) 25 ml Q30M PRN IV Hypoglycemia 05/13/20 19:00 08/09/20 00:59 Dextrose (Dextrose 50%) 50 ml Q30M PRN IV Hypoglycemia 05/13/20 19:00 08/09/20 00:59 Dextrose/ Electrolytes 1,000 ml @ 75 mls/hr [id number] IV 05/13/20 19:30 06/10/20 19:29 05/14/20 08:36 Enoxaparin Sodium (Lovenox) 40 mg Q24H SUBQ 05/14/20 09:00 08/09/20 08:59 05/14/20 08:35 Famotidine (Pepcid) 20 mg BID ORAL 05/14/20 09:00 08/09/20 08:59 05/14/20 08:33 Assessment/Plan Assessment/Plan IMPRESSION: 1. Acute COVID-19 pneumonia. 2. Hypoxemia. 3. Transaminitis and hyperbilirubinemia. 4. Ex-smoker. 5. Obesity 6. Hypertension PLAN: Antiviral therapy per ID Oxygen PRN Decadron per ID, pulmonary hygiene. Jaswinder Frederick MD May 14, 2020 08:39
--- NOTE | 2020-05-14 09:15 | Consultation ---
DATE OF CONSULTATION: 05/11/2020 INFECTIOUS DISEASES CONSULTATION CONSULTING PHYSICIAN: Grabiel Blackwell MD. PRIMARY ATTENDING PHYSICIAN: Mitchell Blackwell MD. REASON FOR CONSULTATION: COVID-19 pneumonia. HISTORY OF PRESENT ILLNESS: This is a 54-year-old male admitted yesterday because of weakness noted for five days, has diarrhea, . He was hypoxemic at the time of transport with O2 saturation of 89% on room air. PAST MEDICAL HISTORY: Significant for hypertension and obesity. PAST SURGICAL HISTORY: Tonsillectomy. ALLERGIES: No known drug allergy. MEDICATIONS: Atorvastatin, Zithromax, ceftriaxone, amlodipine, aspirin, dexamethasone, Tylenol. SOCIAL HISTORY: . Lives at home. He was a fuel truck driver. Ex-smoker. No drug and alcohol abuse. REVIEW OF SYSTEMS: He has poor appetite. No nausea. No vomiting. No dysuria. PHYSICAL EXAMINATION: VITAL SIGNS: Temperature 98, pulse 62, blood pressure is 113/75. GENERAL APPEARANCE: Obese. HEAD AND NECK: Getting oxygen by nasal cannula. Has pink conjunctivae. HEART: Normal rate. LUNGS: Clear. ABDOMEN: Obese, soft. EXTREMITIES: No edema. NEUROLOGIC: Awake, alert, oriented x3. LABORATORY AND DIAGNOSTIC DATA: WBC 11.2, hemoglobin 14.9, hematocrit 45.1, and platelets 178,000. Sodium 138, potassium 3.8, chloride 96, bicarbonate 24, BUN 74, creatinine 2.6, glucose 151, bilirubin 2.3. AST 299, ALT 294. CK level is 6240. Lipase is elevated 625. UA showed rbc of 5 to 10, wbc 2 to 4. There is no blood gas. COVID-19 test was positive. Chest x-ray, that is not read yet shows bilateral infiltrate more in the right lung. IMPRESSION: COVID-19 pneumonia. The patient seems to have severe disease with hypoxemia and hypoxemic respiratory failure and acute renal failure, elevated bilirubin and transaminase, rhabdomyolysis, elevated lipase, morbid obesity, and hypertension, has also hyperglycemia. RECOMMENDATION: We will continue with steroids and antibiotic. Because of renal failure and elevated LFTs, the patient is not eligible for receiving Remdesivir. We will continue with supportive oxygen and supportive care and hydration. At the end of my exam, I thank Dr. Mitchell Blackwell for involving me in the care of this patient. Grabiel Blackwell M.D. DR: ABDIAS JOB#: [id number] CC: JOSY
--- NOTE | 2020-05-14 10:47 | Infectious Diseases Prog Note ---
Assessment/Plan Assessment/Plan IMPRESSION: 1. COVID19 pneumonia. 2. Hypoxemia improving 3. Transaminitis and hyperbilirubinemia. 4. Ex-smoker. 5. Obesity 6. Hypertension 7. Acute renal failure resolving PLAN Continue Zithromax & Rocephin in hospital Continue Dexamethasone in hospital Can be discharged to home Subjective ROS Limited/Unobtainable: No Constitutional: Reports: no symptoms Respiratory: Reports: no symptoms Cardiovascular: Reports: no symptoms Gastrointestinal/Abdominal: Reports: no symptoms Genitourinary: Reports: no symptoms Allergies: Coded Allergies: No Known Allergies (Unverified , 05/10/20) Objective Last 24 Hour Vital Signs Date Time Temp Pulse Resp B/P (MAP) Pulse Ox O2 Delivery O2 Flow Rate FiO2 05/14/20 09:00 Nasal Cannula 2.0 05/14/20 08:34 81 125/62 05/14/20 08:00 99.0 81 20 125/62 (83) 98 05/14/20 05:09 98.7 05/14/20 04:00 97.8 74 20 139/78 (98) 99 05/14/20 00:00 98.7 79 22 139/78 (98) 98 05/13/20 21:05 Nasal Cannula 2.0 05/13/20 20:00 98.3 74 20 138/74 (95) 99 05/13/20 16:00 97.8 82 18 135/70 (91) 97 05/13/20 15:29 85 05/13/20 12:00 98.2 76 18 129/61 (83) 96 05/13/20 11:32 73 Height (Feet): 5 Height (Inches): 7.00 Weight (Pounds): 314 HEENT: mucous membranes moist Respiratory/Chest: lungs clear Cardiovascular: normal rate Abdomen: soft, non tender Extremities: no edema Neurologic/Psychiatric: alert, oriented x 3, responsive Current Medications Medications (Trade) Dose Ordered Sig/Sulema Route PRN Reason Start Time Stop Time Status Last Admin Dose Admin Acetaminophen (Tylenol) 650 mg Q4H PRN ORAL Mild Pain (Pain Scale 1-3) 05/13/20 19:00 06/10/20 18:59 05/14/20 04:37 Acetaminophen (Tylenol) 650 mg Q4H PRN ORAL Temp >100.5 05/13/20 19:00 06/10/20 18:59 Amlodipine Besylate (Norvasc) 10 mg DAILY ORAL 05/14/20 09:00 06/10/20 08:59 05/14/20 08:34 Aspirin (ASA) 81 mg DAILY ORAL 05/14/20 09:00 06/25/20 08:59 05/14/20 08:33 Atorvastatin Calcium (Lipitor) 20 mg BEDTIME ORAL 05/13/20 21:00 08/09/20 20:59 05/13/20 20:26 Azithromycin (Zithromax) 250 mg Q24H ORAL 05/13/20 21:00 05/18/20 20:59 05/13/20 20:26 Ceftriaxone Sodium 1 gm/ Dextrose 55 ml @ 110 mls/hr Q24H IVPB 05/13/20 21:00 05/18/20 20:59 05/13/20 20:26 Dexamethasone Sodium Phosphate (Decadron 4mg/ml vial) 4 mg BID IVP 05/14/20 09:00 08/09/20 08:59 05/14/20 08:34 Dextrose (Dextrose 50%) 25 ml Q30M PRN IV Hypoglycemia 05/13/20 19:00 08/09/20 00:59 Dextrose (Dextrose 50%) 50 ml Q30M PRN IV Hypoglycemia 05/13/20 19:00 08/09/20 00:59 Dextrose/ Electrolytes 1,000 ml @ 75 mls/hr [id number] IV 05/13/20 19:30 06/10/20 19:29 05/14/20 08:36 Enoxaparin Sodium (Lovenox) 40 mg Q24H SUBQ 05/14/20 09:00 08/09/20 08:59 05/14/20 08:35 Famotidine (Pepcid) 20 mg BID ORAL 05/14/20 09:00 08/09/20 08:59 05/14/20 08:33 Grabiel Blackwell MD May 14, 2020 10:47
[2020-05-14 12:00] VITALS: BP 128/65
--- NOTE | 2020-05-14 13:32 | General Progress Note ---
Assessment/Plan Problem List: (1) Pneumonia due to COVID-19 virus ICD Codes: U07.1 - COVID-19; J12.89 - Other viral pneumonia SNOMED: 951572349, 130509341 (2) Hypertension ICD Codes: I10 - Essential (primary) hypertension SNOMED: 97152561 (3) Obesity ICD Codes: E66.9 - Obesity, unspecified SNOMED: 325161957, 188258094 (4) Hypoxia ICD Codes: R09.02 - Hypoxemia SNOMED: 208550741 (5) Diarrhea ICD Codes: R19.7 - Diarrhea, unspecified SNOMED: 11753513 (6) Episode of generalized weakness ICD Codes: R53.1 - Weakness SNOMED: 50096853 Assessment/Plan: O2 as needed steroids anticoagulation abxs Discussed with RN Subjective Allergies: Coded Allergies: No Known Allergies (Unverified , 05/10/20) Subjective all noted Objective Last 24 Hour Vital Signs Date Time Temp Pulse Resp B/P (MAP) Pulse Ox O2 Delivery O2 Flow Rate FiO2 05/14/20 12:00 98.7 86 19 128/65 (86) 98 05/14/20 09:00 Nasal Cannula 2.0 05/14/20 08:34 81 125/62 05/14/20 08:00 99.0 81 20 125/62 (83) 98 05/14/20 05:09 98.7 05/14/20 04:00 97.8 74 20 139/78 (98) 99 05/14/20 00:00 98.7 79 22 139/78 (98) 98 05/13/20 21:05 Nasal Cannula 2.0 05/13/20 20:00 98.3 74 20 138/74 (95) 99 05/13/20 16:00 97.8 82 18 135/70 (91) 97 05/13/20 15:29 85 Intake and Output 05/13/20 05/14/20 19:00 07:00 Intake Total 140 ml Output Total 140 ml Balance 0 ml Intake Oral 140 ml Output Urine Total 140 ml # Voids 3 Height (Feet): 5 Height (Inches): 7.00 Weight (Pounds): 314 Mitchell Blackwell MD May 14, 2020 13:32
[2020-05-14 16:00] VITALS: BP 140/75
[2020-05-14 20:00] VITALS: BP 153/78
[2020-05-14] MEDS: Atorvastatin 20mg tab ORAL SCH (22:02)
[2020-05-14] MEDS: Azithromycin 250mg tab ORAL SCH (22:02)
[2020-05-14] MEDS: cefTRIAXone 1 GM in D5W 55 ML IVPB SCH (22:03)
[2020-05-15 00:20] VITALS: BP 115/74
[2020-05-15 04:00] VITALS: BP 135/78
[2020-05-15 08:00] VITALS: BP 140/74
[2020-05-15] MEDS: Enoxaparin 40mg Inj SUBQ SCH (08:55)
[2020-05-15] MEDS: Aspirin Baby 81mg ORAL SCH (08:56)
[2020-05-15] MEDS: D5 1/2NS w/KCl 20mEq 1,000 ML IV SCH (11:56)
[2020-05-15 12:00] VITALS: BP 153/82
--- NOTE | 2020-05-15 12:01 | Infectious Diseases Prog Note ---
Assessment/Plan Assessment/Plan IMPRESSION: 1. COVID19 pneumonia. 2. Hypoxemia improving 3. Transaminitis and hyperbilirubinemia. 4. Ex-smoker. 5. Obesity 6. Hypertension 7. Acute renal failure resolving PLAN Discontinue Zithromax & Rocephin Discontinue Dexamethasone Can be discharged to home Subjective ROS Limited/Unobtainable: No Constitutional: Reports: no symptoms Respiratory: Reports: no symptoms Cardiovascular: Reports: no symptoms Gastrointestinal/Abdominal: Reports: no symptoms Genitourinary: Reports: no symptoms Allergies: Coded Allergies: No Known Allergies (Unverified , 05/10/20) Objective Last 24 Hour Vital Signs Date Time Temp Pulse Resp B/P (MAP) Pulse Ox O2 Delivery O2 Flow Rate FiO2 05/15/20 09:00 Nasal Cannula 2.0 05/15/20 08:56 75 140/74 05/15/20 08:00 97.9 75 19 140/74 (96) 95 05/15/20 04:00 97.3 72 20 135/78 (97) 93 05/15/20 00:20 97.9 69 21 115/74 (88) 97 05/14/20 21:00 Room Air 05/14/20 20:00 97.3 68 20 153/78 (103) 93 05/14/20 16:00 97.5 81 19 140/75 (96) 98 05/14/20 12:00 98.7 86 19 128/65 (86) 98 Height (Feet): 5 Height (Inches): 7.00 Weight (Pounds): 314 General Appearance: no acute distress Respiratory/Chest: lungs clear Cardiovascular: normal rate Abdomen: soft, non tender Extremities: no edema Neurologic/Psychiatric: alert, oriented x 3, responsive Current Medications Medications (Trade) Dose Ordered Sig/Sulema Route PRN Reason Start Time Stop Time Status Last Admin Dose Admin Acetaminophen (Tylenol) 650 mg Q4H PRN ORAL Mild Pain (Pain Scale 1-3) 05/13/20 19:00 06/10/20 18:59 05/14/20 04:37 Acetaminophen (Tylenol) 650 mg Q4H PRN ORAL Temp >100.5 05/13/20 19:00 06/10/20 18:59 Amlodipine Besylate (Norvasc) 10 mg DAILY ORAL 05/14/20 09:00 06/10/20 08:59 05/15/20 08:56 Aspirin (ASA) 81 mg DAILY ORAL 05/14/20 09:00 06/25/20 08:59 05/15/20 08:56 Atorvastatin Calcium (Lipitor) 20 mg BEDTIME ORAL 05/13/20 21:00 08/09/20 20:59 05/14/20 22:02 Azithromycin (Zithromax) 250 mg Q24H ORAL 05/13/20 21:00 05/18/20 20:59 05/14/20 22:02 Ceftriaxone Sodium 1 gm/ Dextrose 55 ml @ 110 mls/hr Q24H IVPB 05/13/20 21:00 05/18/20 20:59 05/14/20 22:03 Dexamethasone Sodium Phosphate (Decadron 4mg/ml vial) 4 mg BID IVP 05/14/20 09:00 08/09/20 08:59 05/15/20 08:54 Dextrose (Dextrose 50%) 25 ml Q30M PRN IV Hypoglycemia 05/13/20 19:00 08/09/20 00:59 Dextrose (Dextrose 50%) 50 ml Q30M PRN IV Hypoglycemia 05/13/20 19:00 08/09/20 00:59 Dextrose/ Electrolytes 1,000 ml @ 75 mls/hr [id number] IV 05/13/20 19:30 06/10/20 19:29 05/15/20 11:56 Enoxaparin Sodium (Lovenox) 40 mg Q24H SUBQ 05/14/20 09:00 08/09/20 08:59 05/15/20 08:55 Famotidine (Pepcid) 20 mg BID ORAL 05/14/20 09:00 08/09/20 08:59 05/15/20 08:54 Grabiel Blackwell MD May 15, 2020 12:01
--- NOTE | 2020-05-15 12:04 | Pulmonology Progress Note ---
Subjective ROS Limited/Unobtainable: No Interval Events: None new Constitutional: Reports: no symptoms HEENT: Repors: no symptoms Respiratory: Reports: no symptoms Cardiovascular: Reports: no symptoms Gastrointestinal/Abdominal: Reports: no symptoms Allergies: Coded Allergies: No Known Allergies (Unverified , 05/10/20) Objective Last 24 Hour Vital Signs Date Time Temp Pulse Resp B/P (MAP) Pulse Ox O2 Delivery O2 Flow Rate FiO2 05/15/20 09:00 Nasal Cannula 2.0 05/15/20 08:56 75 140/74 05/15/20 08:00 97.9 75 19 140/74 (96) 95 05/15/20 04:00 97.3 72 20 135/78 (97) 93 05/15/20 00:20 97.9 69 21 115/74 (88) 97 05/14/20 21:00 Room Air 05/14/20 20:00 97.3 68 20 153/78 (103) 93 05/14/20 16:00 97.5 81 19 140/75 (96) 98 Intake and Output 05/14/20 05/15/20 19:00 07:00 Intake Total 1355 ml 360 ml Output Total 1200 ml Balance 155 ml 360 ml Intake Oral 680 ml IV Total 675 ml Other 360 ml Output Urine Total 1200 ml # Voids 3 2 General Appearance: no acute distress HEENT: normocephalic Respiratory: chest wall non-tender, lungs clear Cardiovascular: normal peripheral pulses, normal rate Current Medications Medications (Trade) Dose Ordered Sig/Sulema Route PRN Reason Start Time Stop Time Status Last Admin Dose Admin Acetaminophen (Tylenol) 650 mg Q4H PRN ORAL Mild Pain (Pain Scale 1-3) 05/13/20 19:00 06/10/20 18:59 05/14/20 04:37 Acetaminophen (Tylenol) 650 mg Q4H PRN ORAL Temp >100.5 05/13/20 19:00 06/10/20 18:59 Amlodipine Besylate (Norvasc) 10 mg DAILY ORAL 05/14/20 09:00 06/10/20 08:59 05/15/20 08:56 Aspirin (ASA) 81 mg DAILY ORAL 05/14/20 09:00 06/25/20 08:59 05/15/20 08:56 Atorvastatin Calcium (Lipitor) 20 mg BEDTIME ORAL 05/13/20 21:00 08/09/20 20:59 05/14/20 22:02 Dextrose (Dextrose 50%) 25 ml Q30M PRN IV Hypoglycemia 05/13/20 19:00 08/09/20 00:59 Dextrose (Dextrose 50%) 50 ml Q30M PRN IV Hypoglycemia 05/13/20 19:00 08/09/20 00:59 Dextrose/ Electrolytes 1,000 ml @ 75 mls/hr [id number] IV 05/13/20 19:30 06/10/20 19:29 05/15/20 11:56 Enoxaparin Sodium (Lovenox) 40 mg Q24H SUBQ 05/14/20 09:00 08/09/20 08:59 05/15/20 08:55 Famotidine (Pepcid) 20 mg BID ORAL 05/14/20 09:00 08/09/20 08:59 05/15/20 08:54 Assessment/Plan Assessment/Plan IMPRESSION: 1. Acute COVID-19 pneumonia. 2. Hypoxemia. 3. Transaminitis and hyperbilirubinemia. 4. Ex-smoker. 5. Obesity 6. Hypertension PLAN: Antiviral therapy per ID Oxygen PRN Decadron per ID, pulmonary hygiene. Jaswinder Frederick MD May 15, 2020 12:04
--- NOTE | 2020-05-15 12:57 | General Progress Note ---
Assessment/Plan Problem List: (1) Pneumonia due to COVID-19 virus ICD Codes: U07.1 - COVID-19; J12.89 - Other viral pneumonia SNOMED: 196200383, 061769613 (2) Hypertension ICD Codes: I10 - Essential (primary) hypertension SNOMED: 65755991 (3) Obesity ICD Codes: E66.9 - Obesity, unspecified SNOMED: 705578590, 174426306 (4) Hypoxia ICD Codes: R09.02 - Hypoxemia SNOMED: 724156397 (5) Diarrhea ICD Codes: R19.7 - Diarrhea, unspecified SNOMED: 93606757 (6) Episode of generalized weakness ICD Codes: R53.1 - Weakness SNOMED: 32465256 Assessment/Plan: DC today Subjective Allergies: Coded Allergies: No Known Allergies (Unverified , 05/10/20) Subjective ok on RA Objective Last 24 Hour Vital Signs Date Time Temp Pulse Resp B/P (MAP) Pulse Ox O2 Delivery O2 Flow Rate FiO2 05/15/20 09:00 Nasal Cannula 2.0 05/15/20 08:56 75 140/74 05/15/20 08:00 97.9 75 19 140/74 (96) 95 05/15/20 04:00 97.3 72 20 135/78 (97) 93 05/15/20 00:20 97.9 69 21 115/74 (88) 97 05/14/20 21:00 Room Air 05/14/20 20:00 97.3 68 20 153/78 (103) 93 05/14/20 16:00 97.5 81 19 140/75 (96) 98 Intake and Output 05/14/20 05/15/20 19:00 07:00 Intake Total 1355 ml 360 ml Output Total 1200 ml Balance 155 ml 360 ml Intake Oral 680 ml IV Total 675 ml Other 360 ml Output Urine Total 1200 ml # Voids 3 2 Height (Feet): 5 Height (Inches): 7.00 Weight (Pounds): 314 Mitchell Blackwell MD May 15, 2020 12:57
--- NOTE | 2020-05-17 08:19 | Discharge Summary ---
Discharge Summary Discharge Summary _ DATE OF ADMISSION: 05/10/2020 DATE OF DISCHARGE: 05/15/2020 DISCHARGED BY: Dr.Alfred Blackwell REASON FOR ADMISSION: 54 years old male with past medical history of hypertension, morbid obesity, brought by ambulance due to generalized weakness. Patient reported feeling weak for the past 7 days. He also reported chills , subjective fever and diarrhea. Diarrhea reported to copious but nonbloody. He also reported difficulty breathing , since symptoms started. He denied cough. No chest pain. Chest x-ray showed multifocal pneumonia, suspicious for COVID. Rapid COVID-19 was positive. EKG revealed sinus tachycardia with heart rate 113. Laboratory work-up revealed leukocytosis, stable hemoglobin and hematocrit. Lactic acid 2.0. Troponin negative. Pro BNP 44. Sodium 133, chloride 96. BUN 74, creatinine 2.6. Glucose 151. AST 299 , ALT 294. Total bilirubin 2.3 , direct bilirubin 1.1. Urinalysis revealed no evidence of urinary tract infection ,+2 protein noted. Patient subsequently admitted to isolation room for further management. CONSULTANTS: pulmonary Dr. Frederick ID specialist Dr. Grabiel Blackwell HOSPITAL COURSE: Patient admitted to isolation room and started on empiric antibiotic ,steroids and anticoagulation with Lovenox. Supplemental oxygen provided and titrated to keep pulse oximetry above 92%. IV hydration provided. GI prophylaxis provided. Blood pressure was managed with calcium channel boby. Antiplatelet therapy with aspirin and statin continued. Pulse oximetry was stable on oxygen low flow via nasal cannula. Mild leukocytosis initially increased and then started to trend down. No fevers. ID specialist recommended discontinue antibiotic and steroids after 5 days. ID specialist cleared patient for discharge home. Renal parameters and electrolytes were closely monitored ,electrolytes corrected as needed. With IV hydration acute renal failure resolved : BUN from 74 down to 16 and creatinine from 2.6 down to 1.1. LFT and bilirubin monitored. AST and ALT trending down. Total bilirubin down to normal. Patient clinically stabilized and was ready for discharge. FINAL DIAGNOSES: COVID pneumonia Hypoxemia -improved Acute renal failure Transaminitis Obesity Hypertension Ex-smoker DISCHARGE MEDICATIONS: See Medication Reconciliation list. DISCHARGE INSTRUCTIONS: Patient was discharged home. Office a primary care provider in 1 week. I have been assigned to dictate discharge summary for this account. I was not involved in the patient's management. Ciara Velasco NP May 17, 2020 08:19
== END 2020-05-15 16:02 | disposition home or self-care (01) | DRG 177 ==
LOC: EDBD 19:56 → EMR 20:15 → 2E 21:15 → EDBEDREQ 22:58 → 2E 05-12 18:25 → 4E 05-13 18:38
DX: U07.1 COVID-19 (principal); J12.89 Other viral pneumonia; J96.91 Respiratory failure, unspecified with hypoxia; Z68.42 Body mass index [BMI] 45.0-49.9, adult; N17.9 Acute kidney failure, unspecified; M62.82 Rhabdomyolysis; E80.6 Other disorders of bilirubin metabolism; Z87.891 Personal history of nicotine dependence; I10 Essential (primary) hypertension; E66.01 Morbid (severe) obesity due to excess calories; Z91.19 Patient's noncompliance with other medical treatment and regimen; R19.7 Diarrhea, unspecified; R74.0 Nonspecific elevation of levels of transaminase and lactic acid dehydrogenase [LDH]
CPT/HCPCS: 36415; 71045; 80048; 80053; 80061; 81003; 82248; 82550; 82962; 83036; 83605; 83690; 83735; 83880; 84100; 84484; 85025; 85610; 85730; 87040; 93005; 96365; 96375; 99291; J7030; U0002